=== PATIENT | male | born 1945 | race Caucasian/White ===

== ENCOUNTER 2019-11-03 04:53 | Inpatient (IN) | payer MEDICARE, BC ==
[~2019-11-03] VITALS: Ht 177.8 cm; Wt 141.0 kg
[2019-11-03] MEDS ORDERED: SODIUM CHLORIDE FLUSH 10ML SYR IVF ONE (05:00)
--- NOTE | 2019-11-03 05:15 | NUR ---
BIB [facility] WITH C/O SOB AND DENIZ CARDIA WAS 30 AT SCENE, 0.5 ATROPINE GIVEN, 15 L NON REBREATHER SPEAKING IN FULL SCENTENCES AT THIS
[2019-11-03] MEDS ORDERED: NOREPINEPHRINE 4 MG in SODIUM CHLORIDE 0.9% 246 ML IV PRN ×2 (05:18→11:47)
[2019-11-03] MEDS ORDERED: GLUCAGON 1 MG ONE (05:25)
[2019-11-03] MEDS ORDERED: ATROPINE SYRINGE 0.1 MG/ML, 10ML ONE (05:25)
[2019-11-03] MEDS ORDERED: ATROPINE SYRINGE 0.1 MG/ML, 10ML IVPush ONE (05:30)
[2019-11-03] MEDS ORDERED: PLEASE ENTER HEIGHT AND WEIGHT MC SCH (05:30)
[2019-11-03] MEDS ORDERED: GLUCAGON 1 MG IVPush ONE (05:30)
[2019-11-03 05:34] LABS: INTERNATIONAL NORMALIZED RATIO 1.06 (0.93-1.1); PROTHROMBIN TIME 11.1 Seconds (9.6-11.5)
[2019-11-03 05:39] LABS: ALBUMIN 3.1 g/dL (3.4-5.0); ANION GAP 10 mmol/L (5-15); CALCIUM 7.6 mg/dL (8.5-10.1); CHLORIDE 95 mmol/L (98-107)
[2019-11-03] MEDS ORDERED: ONDANSETRON 2MG/ML, 2ML ONE (05:42)
[2019-11-03 05:43] LABS: ALANINE AMINOTRANSFERASE 49 U/L (12-78); ALKALINE PHOSPHATASE 80 U/L (45-117); BILIRUBIN,TOTAL 0.6 mg/dL (0.2-1.0); CREATININE 6.45 mg/dL (0.7-1.3); TOTAL PROTEIN 6.3 g/dL (6.4-8.2); TROPONIN I < 0.015 ng/mL (0.000-0.045)
[2019-11-03] MEDS: DOPAMINE/D5W PMX 250 ML IV PRN ×11 (05:47→13:02)
[2019-11-03 05:48] LABS: FREE T4 (FREE THYROXINE) 0.37 ng/dL (0.76-1.46); MEAN CORPUSCULAR HEMOGLOBIN 27.7 pg (27.5-34.5); MEAN CORPUSCULAR HGB CONC 30.9 g/dL (33.2-36.2); MEAN CORPUSCULAR VOLUME 89.6 fL (81-97); RED BLOOD COUNT 4.03 x10^6/uL (4.38-5.82); RED CELL DISTRIBUTION WIDTH 20.6 % (9.4-14.8)
[2019-11-03 05:59] LABS: MD YES
[2019-11-03 06:00] LABS: LYMPHS% (MANUAL) 11 % (22-44); MONOS#(MANUAL) 0.87 x10^3/uL (0.3-2.7); MONOS% (MANUAL) 8 % (2-9); SEG#(MANUAL) 8.83 x10^3/uL (1.8-6.8); SEGS% (MANUAL) 81 % (42-75)
[2019-11-03] MEDS ORDERED: SODIUM BICARB 8.4%, 50ML SYRINGE IVPush ONE (06:00)
[2019-11-03] MEDS ORDERED: INSULIN REGULAR 100 UNITS/ML, 3ML VIAL IVPush ONE (06:00)
[2019-11-03] MEDS ORDERED: CALCIUM GLUCONATE 9.2 MEQ in SODIUM CHLORIDE 0.9% 100 ML IV ONE (06:00)
[2019-11-03] MEDS ORDERED: ONDANSETRON 2MG/ML, 2ML IVPush ONE (06:00)
[2019-11-03] MEDS ORDERED: ALBUTEROL 0.5%, 20ML NPPB ONE (06:00)
[2019-11-03] MEDS ORDERED: DEXTROSE 50%, 50ML SYRINGE IVPush ONE (06:00)
[2019-11-03 06:01] LABS: ANISOCYTOSIS 1+; MEAN PLATELET VOLUME 10.8 fL (7.4-10.4); PLATELET COUNT 172 x10^3/uL (130-400)
[2019-11-03 06:02] LABS: <PLATELET ESTIMATE> ADEQUATE; POLYCHROMASIA 1+
[2019-11-03 06:03] LABS: LARGE PLATELETS 1+
[2019-11-03] MEDS ORDERED: INSULIN SINGLE DOSE, ER ONE (06:09)
[2019-11-03] MEDS ORDERED: SODIUM BICARBONATE 1 MEQ/ML, 50ML VIAL ONE (06:10)
[2019-11-03] MEDS ORDERED: PROMETHAZINE 25 MG/ML, 1ML ONE (06:29)
[2019-11-03] MEDS ORDERED: PROMETHAZINE 25 MG/ML, 1ML IM ONE (06:30)
--- NOTE | 2019-11-03 06:34 | NUR ---
MEDICATED PER MAR PT RESPONDING WELL TO MEDICATIONS
[2019-11-03] MEDS ORDERED: ETOMIDATE 20 MG/10 ML IV ONE (07:00)
[2019-11-03] MEDS ORDERED: ROCURONIUM 10 MG/ML,10ML IVPush ONE (07:00)
--- NOTE | 2019-11-03 07:00 | NUR ---
REPORT WAS RECEIVED AND CARE WAS ASSUMED. PT. IS A & O X 2, GCS IS 13. PT. IS RETRACTING. DISCUSSED WITH DR. STEPHEN AND LABS REVIEWED. PT. AND WERE UPDATED ON THE PLAN OF CARE. ED STAFF IS SETTING UP TO INTUBATE THE PT.
--- NOTE | 2019-11-03 07:05 | NUR ---
PT. HAS HOB IS RAISED. PT. WAS PLACED ON 15 LITERS O2 PER NASAL CANNULA AND THE RT IS BAGGING THE PT. DR. STEPHEN INTUBATED THE PT. WITH AN 8.0 ET TUBE THAT IS 26CM AT THE LIP. PT. HAS GOOD BILAT BREATH SOUNDS. ETCO2 IS CURRENTLY 50. PT. REMAINS ON THE CARDIOPULMONARY MONITOR, MEDICATIONS INFUSING ORDERED. SOFT RESTRAINTS WERE PLACED TO PROTECT MEDICAL EQUIPTMENT AND PT.'S KWONG CATH IS DRAINING CLEAN YELLOW URINE. PT. HAS A #[address] TO HIS RIGHT NARE AND IT IS DRAINING GASTRIC CONTENTS. SUCTION IS LOW AND CONTINUOUS. RN REMAINS AT THE BEDSIDE. HOB IS ELEVATED GREATER THAN 30 DEGREES. WARMING MEASURES ARE IN PLACE AND THE SIDERAILS REMAIN UP X 2. PT.'S IS GIVEN FREQUENT EXPLANATIONS ON THE PLAN OF CARE AND PROCEDURES TO THE PT.
--- NOTE | 2019-11-03 07:10 | NUR ---
PT.'S VENT SETTINGS ARE FOLLOWS: PRVC, RR=18, GW=401, PEEP=5, CIT8=263%. ET TUBE CUFF PRESSURE IS 26CM PER THE RT.
[2019-11-03] MEDS: PROPOFOL 100 ML IV PRN ×5 (07:20→21:18)
[2019-11-03] MEDS ORDERED: ALBUTEROL 0.5%, 20ML ONE (07:25)
--- NOTE | 2019-11-03 07:33 | NUR ---
PT.'S DOMAPINE TITRATED DOWN TO 8MCG/KG/MIN
--- NOTE | 2019-11-03 07:43 | NUR ---
PT.'S DOPAMINE WAS TITRATED DOWN TO 5 MCG/KG/MIN.
--- NOTE | 2019-11-03 07:53 | NUR ---
PT. IS HYPERTENSIVE. DOPAMINE STOPPED. DR. STEPHEN IS AWARE.
[2019-11-03] MEDS ORDERED: ENALAPRILAT 1.25 MG/ML, 2ML IVPush PRN (08:00)
[2019-11-03] MEDS ORDERED: POLYETHYLENE GLYCOL 17 GM PACKET PO PRN (08:00)
[2019-11-03] MEDS ORDERED: BISACODYL 10 MG SUPP PR PRN (08:00)
[2019-11-03] MEDS ORDERED: ACETAMINOPHEN 325 MG TABLET PO PRN (08:00)
[2019-11-03] MEDS ORDERED: LABETALOL 5MG/ML, 20ML IVPush PRN (08:00)
--- NOTE | 2019-11-03 08:04 | NUR ---
DR. CAMARA IS AT THE BEDSIDE. WAS GIVEN REPORT AND THE PT.'S CARE AND TREATMENTS. MD IS AWARE OF THE PT.'S LABS. THE MD IS SPEAKING WITH THE PT.'S AND DISCUSSING THE TREATMENTS WELL THE PLAN OF CARE. KOBI AGUILAR CONTINUES TO TITRATE THE PT.'S DOPAMINE.
--- NOTE | 2019-11-03 08:05 | NUR ---
PT.'S HEART RATE AND BLOOD PRESSURE ARE DROPPING. DOPAMINE WAS RESTARTED AT 5MCG/KG/MIN.
--- NOTE | 2019-11-03 08:15 | NUR ---
PT.'S DOPAMINE WAS DECREASED TO 3MCG/KG/MIN.
--- NOTE | 2019-11-03 08:25 | NUR ---
PT. HAS THE KIARA HUGGER IN PLACE. HOB REMAINS ELEVATED GREATER THAN 30 DEGREES. PT. IS RESTING WITHOUT S/S DISCOMFORT. SIDERAILS REMAIN UP X 2. AT THE BEDSIDE.
--- NOTE | 2019-11-03 08:27 | NUR ---
RT AT THE BEDSIDE. RT IS DECREASING THE PT.'S 02 TO 80%.
[2019-11-03] MEDS ORDERED: FUROSEMIDE 100 MG/10 ML IV ONE (08:30)
[2019-11-03] MEDS ORDERED: FUROSEMIDE 40 MG/4 ML ONE (08:55)
--- NOTE | 2019-11-03 08:58 | NUR ---
PT.'S ETCO2 REMAINS AT 40. PT. HAS THE CP MONITOR IN PLACE. VENT SETTINGS REMAIN UNCHANGED. PT. IS RESTING WITH THE HOB ELEVATED. RN REMAINS AT THE BEDSIDE AND IS TITRATING DOPAMINE PRN TO MAITAIN VITALS WITHIN PARAMETERS. LASIX GIVEN ORDERED.
[2019-11-03] MEDS: SENNA/DOCUSATE TABLET PO SCH (09:00)
--- NOTE | 2019-11-03 09:00 | NUR ---
DOPAMINE INCREASED TO 4 MCG/KG/MIN
--- NOTE | 2019-11-03 09:17 | NUR ---
PT. IS MOVING AND TWITCHING. WITHDRAWS TO PAIN. PROPOFOL INCREASED AT THIS TIME. SEE MAR.
--- NOTE | 2019-11-03 09:39 | NUR ---
PT.'S BGL ZPPIFRH=[id number]. PT. WAS REPOSITIONED FOR COMFORT. HOB REMAINS ELEVATED GREATER THAN 3O DEGREES. PT. HAS THE CP MONITOR IN PLACE. PT.'S URINE OUTPUT IS 1,100CC AFTER THE LASIX WAS GIVEN. AN ADDITION IV WAS ESTABLISHED IN THE PT.'S LEFT WRIS #20G. WARMING MEASURES ARE WORKING. PT.'S BODY TEMPERATURE IS INCREASING. VITALS ARE STABLE AT THIS TIME.
--- NOTE | 2019-11-03 09:51 | NUR ---
PT. IS STARTING TO MOVE FREQUENTLY. PROPOFOL INCREASED TO KEEP THE PT. COMFORTABLE.
[2019-11-03] MEDS ORDERED: PROPOFOL 100 ML IV ONE ×2 (09:56→12:43)
[2019-11-03] MEDS ORDERED: AZIT500T10 PO (10:14)
[2019-11-03] MEDS ORDERED: ATOR-2 PO (10:14)
[2019-11-03] MEDS ORDERED: ASCO1500 PO (10:14)
[2019-11-03] MEDS ORDERED: CHOL100015 PO (10:14)
[2019-11-03] MEDS ORDERED: PRED10TA PO (10:14)
[2019-11-03] MEDS ORDERED: OMEP-110 PO (10:14)
[2019-11-03] MEDS ORDERED: PREG300C PO (10:14)
[2019-11-03] MEDS ORDERED: SPIR25TA5 PO (10:14)
[2019-11-03] MEDS ORDERED: LISI-167 PO (10:14)
[2019-11-03] MEDS ORDERED: BUME2TAB3 PO (10:14)
[2019-11-03] MEDS ORDERED: BUDE10.2 INH (10:14)
[2019-11-03] MEDS ORDERED: CLOP75TA52 PO (10:14)
[2019-11-03] MEDS ORDERED: ARMO250T2 PO (10:14)
[2019-11-03] MEDS ORDERED: MONT10TA9 PO (10:14)
[2019-11-03] MEDS ORDERED: AMIO400T5 PO (10:14)
[2019-11-03] MEDS ORDERED: ALBU0.63 NEB (10:14)
[2019-11-03] MEDS ORDERED: DOCU-131 PO (10:14)
[2019-11-03] MEDS ORDERED: NITR0.6T4 SL (10:14)
[2019-11-03] MEDS ORDERED: METO-93 PO (10:14)
[2019-11-03] MEDS ORDERED: RIVA15TA PO (10:14)
[2019-11-03] MEDS ORDERED: [UNRECOGNIZED DRUG - CODE] PO (10:14)
[2019-11-03] MEDS ORDERED: TAMS-11 PO (10:14)
[2019-11-03] MEDS: LEVOTHYROXINE 100 MCG INJ IVPush SCH (10:19)
[2019-11-03] MEDS ORDERED: FENTANYL PF 100 MCG/2ML IVPush ONE (10:30)
[2019-11-03] MEDS ORDERED: HYDROCORTISONE 100 MG INJ. ONE (10:30)
[2019-11-03] MEDS ORDERED: FENTANYL PF 100 MCG/2ML ONE (10:31)
--- NOTE | 2019-11-03 10:33 | NUR ---
DR. QUINONES IS AT THE BEDSIDE. ORDERS RECEIVED AND CARRIED OUT.
--- NOTE | 2019-11-03 10:37 | NUR ---
PT. IS RESTLESS. PT. WAS MEDICATED FOR PAIN ORDRED.
--- NOTE | 2019-11-03 10:47 | NUR ---
PT. WAS MEDICATED FOR PAIN ORDERED. PT. REMAINS MONITORED AND IS RESTING WITHOUT S/S DISCOMFORT. VSS. PT.'S MOUTH WAS SUCTIONS. BROWN GASTRIC CONTENTS REMOVED FROM THE PT.'S NG TUBE. PT. REMAINS ON THE VENTILATOR, HOB IS ELEVATED GREATER THAN 30 DEGREES. PT.'S KWONG CATH CONTINUES TO PUT OUT CLEAR YELLOW URINE. WARMING MEASURES REMAIN IN PLACE. PT. HAS THE KIARA BLANKET ON. SIDERAILS ARE UP X 2 WITH THE RN AT THE BEDSIDE. PT.'S DRIPS ARE INFUSING ON THE PUMP AT THIS TIME.
[2019-11-03] MEDS: HYDROCORTISONE 100 MG INJ. IVPush SCH ×3 (10:49→18:13)
--- NOTE | 2019-11-03 10:52 | NUR ---
PO STOOL SOFTENER NOT GIVEN SECONDARY TO THE PT. BEING INTUBATED.
[2019-11-03] MEDS ORDERED: HYDROCORTISONE 100 MG INJ. IVPush ONE (11:00)
--- NOTE | 2019-11-03 11:14 | NUR ---
FAMILY IS AT THE BEDSIDE. PT. IS RESTING WITHOUT S/S DISCOMFORT. CP MONITOR REMAINS IN PLACE. PT. REMAINS ON THE VENTILATOR. IV DRIPS ARE INFUSING ON THE PUMP. VSS. SIDERAILS REMAIN UP X 2 WITH THE RN AT THE PT.'S BEDSIDE.
--- NOTE | 2019-11-03 11:31 | NUR ---
DR. POMPA AND ARE AT THE BEDSIDE WITH THE PT. PT.'S BLOOD PRESSURE DECREASED. PT.'S DOPAMINE DRIP WAS TITRATED TO SUPPORT THE PT.'S BLOOD PRESSURE. SEE MAR.
--- NOTE | 2019-11-03 11:52 | NUR ---
PT.'S BLOOD PRESSURE IMPROVED. DR. POMPA WAS UPDATED. RN REMAINS AT THE BEDSIDE.
[2019-11-03] MEDS ORDERED: DEXTROSE 4 GM TAB.CHEW PO PRN (12:00)
[2019-11-03] MEDS: ALBUTEROL/IPRATROPIUM 2.5MG/0.5MG, 3 ML INLINE SCH ×4 (12:00→23:00)
[2019-11-03] MEDS ORDERED: GLUCAGON 1 MG IM PRN (12:00)
[2019-11-03] MEDS ORDERED: DEXTROSE 50%, 50ML SYRINGE IVPush PRN (12:00)
[2019-11-03] MEDS ORDERED: PHARMACY MAY ADJ FOR RENAL FX MC SCH (12:00)
[2019-11-03] MEDS ORDERED: LIDOCAINE-MPF 1%, 2ML ENDO PRN (12:00)
--- NOTE | 2019-11-03 12:17 | NUR ---
LAB IS AT THE BEDSIDE DRAWING THE PT.'S BLOOD.
--- NOTE | 2019-11-03 12:29 | NUR ---
DR. POMPA AT THE BEDSIDE EXPLAINING THE DIALYSIS CATH PLACEMENT TO THE PT.'S FAMILY WITH CONSENT OBTAINED. INSTRUCTED RN LAUREN TO LEAVE THE PT.'S BP ON THE HIGHER SIDE WITH HIS DOPAMINE GTT INFUSING AT 5MCG/KG/MIN.
[2019-11-03] MEDS ORDERED: METRONIDAZOLE PMX 500MG/100ML 100 ML ONE (12:36)
[2019-11-03] MEDS ORDERED: CEFTRIAXONE PMX 1GM/50ML 50 ML ONE (12:36)
[2019-11-03] MEDS: CEFTRIAXONE PMX 1GM/50ML 50 ML IV SCH (12:38)
[2019-11-03 12:48] LABS: CALCIUM 8.9 mg/dL (8.5-10.1)
[2019-11-03 12:49] LABS: INTERNATIONAL NORMALIZED RATIO 0.99 (0.93-1.1); PROTHROMBIN TIME 10.4 Seconds (9.6-11.5)
[2019-11-03 12:51] LABS: ABSOLUTE RETICS # 0.114 x10^6/uL (0.5-1.5); RETICULOCYTE COUNT % 2.38 % (0.5-1.5)
[2019-11-03 12:52] LABS: % IRON SATURATION 16 % (20-55); IRON LEVEL 58 mcg/dL (65-175); RED BLOOD COUNT 4.77 x10^6/uL (4.38-5.82); TOTAL IRON BINDING CAPACITY 355 mcg/dL (250-450)
--- NOTE | 2019-11-03 12:53 | NUR ---
DR. JOHNSON IS AT THE BEDSIDE WITH THE PT. LYING FLAT, PLACING A DIALYSIS CATH. PT. REMAINS MONITORED.
[2019-11-03 12:55] LABS: TROPONIN I 0.047 ng/mL (0.000-0.045)
--- NOTE | 2019-11-03 12:57 | NUR ---
PT. REMAIN ON THE CP MONITOR AND VENTILATOR. ALL MEDICATIONS ARE INFUSING ON THE PUMP. LABS WERE DRAWN. DR. MORENO IS AT THE BEDSIDE COMPLETING THE TEMPORARY DIALYSIS CATH PLACEMENT. RN REMAINS AT THE PT.'S BEDSIDE.
--- NOTE | 2019-11-03 13:02 | NUR ---
PT. WAS TAKEN OFF OF THE KIARA BLANKET. FAMILY REMAINS AT THE BEDSIDE.
--- NOTE | 2019-11-03 13:27 | NUR ---
REPORT WAS GIVEN TO ZAHRAA PEACE. RN IS PREPARING THE PT. FOR TRANSPORT TO CCU.
--- NOTE | 2019-11-03 13:30 | NUR ---
URINE OUTPUT IS 2,000CC.
--- NOTE | 2019-11-03 13:35 | NUR ---
PT. WAS TRANSPORTED TO CCU ROOM 559. RN AND RT TRANSPORTED THE PT. WITH CP MONITOR AND PORTABLE VENT IN PLACE.
[2019-11-03] MEDS: LIOTHYRONINE 5 MCG TABLET PO SCH ×2 (14:41→22:35)
[2019-11-03] MEDS: METRONIDAZOLE PMX 500MG/100ML 100 ML IV SCH ×2 (14:42→23:54)
[2019-11-03] MEDS: INSULIN LISPRO 100 UNITS/ML, PEN SQ-INSULIN SCH ×2 (16:40→21:00)
[2019-11-03] MEDS ORDERED: PROPOFOL 10 MG/ML, 100ML IV ONE (16:53)
[2019-11-03] MEDS ORDERED: ROCURONIUM 10MG/ML,5ML ONE (16:53)
[2019-11-03] MEDS ORDERED: ETOMIDATE 40 MG/20 ML ONE (16:53)
[2019-11-03 19:03] LABS: MICROSCOPIC AUTO
[2019-11-03] MEDS: BUDESONIDE 0.5 MG/2 ML INHA INH SCH (19:10)
[2019-11-03 19:16] LABS: CULTURE INDICATED? NO
[2019-11-03 19:32] LABS: CREATININE,URINE RANDOM 97.3 mg/dL
[2019-11-03 20:01] LABS: TROPONIN I 0.043 ng/mL (0.000-0.045)
[2019-11-03] MEDS: SODIUM CHLORIDE FLUSH 10ML SYR IVF SCH (21:18)
[2019-11-04] MEDS: PROPOFOL 100 ML IV PRN ×5 (01:08→21:14)
[2019-11-04] MEDS: HYDROCORTISONE 100 MG INJ. IVPush SCH ×3 (02:49→18:57)
[2019-11-04] MEDS: ALBUTEROL/IPRATROPIUM 2.5MG/0.5MG, 3 ML INLINE SCH ×6 (02:55→22:38)
[2019-11-04 04:00] VITALS: BP 119/59
[2019-11-04] MEDS: DOPAMINE/D5W PMX 250 ML IV PRN ×2 (04:45→17:23)
[2019-11-04 05:58] LABS: ALBUMIN 2.6 g/dL (3.4-5.0); ANION GAP 8 mmol/L (5-15); CALCIUM 7.5 mg/dL (8.5-10.1); CHLORIDE 97 mmol/L (98-107); MEAN CORPUSCULAR HEMOGLOBIN 27.3 pg (27.5-34.5); MEAN CORPUSCULAR HGB CONC 31.3 g/dL (33.2-36.2); MEAN CORPUSCULAR VOLUME 87.3 fL (81-97); PLATELET COUNT 171 x10^3/uL (130-400); RED BLOOD COUNT 4.06 x10^6/uL (4.38-5.82); RED CELL DISTRIBUTION WIDTH 20.7 % (9.4-14.8)
[2019-11-04 06:03] LABS: ALANINE AMINOTRANSFERASE 40 U/L (12-78); ALKALINE PHOSPHATASE 53 U/L (45-117); BILIRUBIN,TOTAL 0.4 mg/dL (0.2-1.0); CREATININE 3.27 mg/dL (0.7-1.3); TOTAL PROTEIN 5.5 g/dL (6.4-8.2)
[2019-11-04] MEDS: LIOTHYRONINE 5 MCG TABLET PO SCH ×2 (06:28→16:03)
[2019-11-04 06:33] LABS: BASOPHILS % (AUTO) 0 % (0-1); EOSINOPHILS % (AUTO) 0 % (1-7); LYMPHOCYTES # (AUTO) 0.39 x10^3/uL (1-3.4); LYMPHOCYTES % (AUTO) 4 % (22-44); MD SCAN; MONOCYTES # (AUTO) 0.82 x10^3/uL (0.2-0.8); MONOCYTES % (AUTO) 8 % (2-9); NEUTROPHILS # (AUTO) 9.69 x10^3/uL (1.8-6.8); NEUTROPHILS % (AUTO) 89 % (42-75)
[2019-11-04] MEDS: INSULIN LISPRO 100 UNITS/ML, PEN SQ-INSULIN SCH ×4 (07:00→21:15)
[2019-11-04] MEDS: BUDESONIDE 0.5 MG/2 ML INHA INH SCH ×2 (07:04→18:33)
[2019-11-04] MEDS: PANTOPRAZOLE 40 MG IV IV SCH (07:49)
[2019-11-04] MEDS: SODIUM CHLORIDE FLUSH 10ML SYR IVF SCH ×2 (07:49→21:15)
[2019-11-04] MEDS: LEVOTHYROXINE 100 MCG INJ IVPush SCH (07:49)
[2019-11-04] MEDS: METRONIDAZOLE PMX 500MG/100ML 100 ML IV SCH ×2 (07:49→18:09)
[2019-11-04] MEDS: SENNA/DOCUSATE TABLET PO SCH (07:50)
[2019-11-04] MEDS ORDERED: MICROFIBRILLAR COLLAGEN 0.5GM/PACK TP ONE (11:00)
[2019-11-04] MEDS: CEFTRIAXONE PMX 1GM/50ML 50 ML IV SCH (12:47)
[2019-11-05] MEDS: PROPOFOL 100 ML IV PRN ×4 (00:03→08:23)
[2019-11-05] MEDS: LIOTHYRONINE 5 MCG TABLET PO SCH ×3 (00:04→16:28)
[2019-11-05] MEDS: FENTANYL PF 100 MCG/2ML IVPush PRN ×3 (00:39→16:28)
[2019-11-05] MEDS: METRONIDAZOLE PMX 500MG/100ML 100 ML IV SCH ×3 (02:08→18:12)
[2019-11-05] MEDS: HYDROCORTISONE 100 MG INJ. IVPush SCH ×3 (02:58→20:43)
[2019-11-05 04:58] LABS: EOSINOPHILS % (AUTO) 0 % (1-7); MD NO; PLATELET COUNT 158 x10^3/uL (130-400)
[2019-11-05 05:03] LABS: ALANINE AMINOTRANSFERASE 38 U/L (12-78); ALBUMIN 2.5 g/dL (3.4-5.0); ANION GAP 8 mmol/L (5-15); CALCIUM 7.9 mg/dL (8.5-10.1); CHLORIDE 103 mmol/L (98-107); CREATININE 1.59 mg/dL (0.7-1.3)
[2019-11-05 05:05] LABS: ALKALINE PHOSPHATASE 45 U/L (45-117); BILIRUBIN,TOTAL 0.5 mg/dL (0.2-1.0); TOTAL PROTEIN 5.5 g/dL (6.4-8.2)
[2019-11-05 05:13] LABS: BASOPHILS % (AUTO) 0 % (0-1); LYMPHOCYTES # (AUTO) 0.42 x10^3/uL (1-3.4); LYMPHOCYTES % (AUTO) 5 % (22-44); MEAN CORPUSCULAR HEMOGLOBIN 27.7 pg (27.5-34.5); MEAN CORPUSCULAR HGB CONC 31.6 g/dL (33.2-36.2); MEAN CORPUSCULAR VOLUME 87.7 fL (81-97); MONOCYTES # (AUTO) 0.77 x10^3/uL (0.2-0.8); MONOCYTES % (AUTO) 8 % (2-9); NEUTROPHILS # (AUTO) 8.18 x10^3/uL (1.8-6.8); NEUTROPHILS % (AUTO) 87 % (42-75); RED BLOOD COUNT 3.92 x10^6/uL (4.38-5.82); RED CELL DISTRIBUTION WIDTH 20.6 % (9.4-14.8)
[2019-11-05] MEDS: ALBUTEROL/IPRATROPIUM 2.5MG/0.5MG, 3 ML INLINE SCH (06:37)
[2019-11-05] MEDS: BUDESONIDE 0.5 MG/2 ML INHA INH SCH ×2 (06:37→21:00)
[2019-11-05] MEDS: INSULIN LISPRO 100 UNITS/ML, PEN SQ-INSULIN SCH ×4 (07:00→20:44)
[2019-11-05] MEDS: PANTOPRAZOLE 40 MG IV IV SCH (08:08)
[2019-11-05] MEDS: LEVOTHYROXINE 100 MCG INJ IVPush SCH (08:08)
[2019-11-05] MEDS: SENNA/DOCUSATE TABLET PO SCH (08:08)
[2019-11-05] MEDS: SODIUM CHLORIDE FLUSH 10ML SYR IVF SCH ×2 (08:23→20:43)
[2019-11-05] MEDS ORDERED: NOREPINEPHRINE 4 MG in SODIUM CHLORIDE 0.9% 246 ML IV PRN (09:30)
[2019-11-05] MEDS ORDERED: ALBUTEROL SULFATE 2.5 MG/3 ML NPPB PRN (12:00)
[2019-11-05] MEDS: CEFTRIAXONE PMX 1GM/50ML 50 ML IV SCH (12:16)
[2019-11-05] MEDS ORDERED: MICROFIBRILLAR COLLAGEN 1 GM TP ONE (16:30)
[2019-11-05] MEDS: AMIODARONE 200 MG TABLET PO SCH (18:12)
[2019-11-06] MEDS: LIOTHYRONINE 5 MCG TABLET PO SCH ×3 (01:24→17:44)
[2019-11-06] MEDS: METRONIDAZOLE PMX 500MG/100ML 100 ML IV SCH ×3 (01:25→18:16)
[2019-11-06] MEDS: MORPHINE SULFATE 4 MG/ML, 1ML IVPush PRN ×2 (02:08→08:26)
[2019-11-06] MEDS: HYDROCORTISONE 100 MG INJ. IVPush SCH ×3 (04:12→21:04)
[2019-11-06 06:32] LABS: BASOPHILS # (AUTO) 0.05 x10^3/uL (0-0.1); BASOPHILS % (AUTO) 1 % (0-1); EOSINOPHILS % (AUTO) 0 % (1-7); LYMPHOCYTES # (AUTO) 0.53 x10^3/uL (1-3.4); LYMPHOCYTES % (AUTO) 5 % (22-44); MD NO; MEAN CORPUSCULAR HGB CONC 31.6 g/dL (33.2-36.2); MEAN CORPUSCULAR VOLUME 88.5 fL (81-97); MEAN PLATELET VOLUME 10.6 fL (7.4-10.4); MONOCYTES # (AUTO) 1.08 x10^3/uL (0.2-0.8); MONOCYTES % (AUTO) 11 % (2-9); NEUTROPHILS # (AUTO) 8.26 x10^3/uL (1.8-6.8); NEUTROPHILS % (AUTO) 83 % (42-75); PLATELET COUNT 145 x10^3/uL (130-400); RED BLOOD COUNT 3.66 x10^6/uL (4.38-5.82); RED CELL DISTRIBUTION WIDTH 20.7 % (9.4-14.8)
[2019-11-06 06:41] LABS: ALBUMIN 2.7 g/dL (3.4-5.0); ANION GAP 5 mmol/L (5-15); CALCIUM 7.9 mg/dL (8.5-10.1); CHLORIDE 107 mmol/L (98-107)
[2019-11-06] MEDS: BUDESONIDE 0.5 MG/2 ML INHA INH SCH ×2 (06:45→19:51)
[2019-11-06 06:46] LABS: ALANINE AMINOTRANSFERASE 35 U/L (12-78); ALKALINE PHOSPHATASE 47 U/L (45-117); BILIRUBIN,TOTAL 0.7 mg/dL (0.2-1.0); CREATININE 1.29 mg/dL (0.7-1.3); TOTAL PROTEIN 5.7 g/dL (6.4-8.2)
[2019-11-06] MEDS: INSULIN LISPRO 100 UNITS/ML, PEN SQ-INSULIN SCH ×4 (07:00→21:00)
[2019-11-06 07:43] LABS: TROPONIN I 0.038 ng/mL (0.000-0.045)
[2019-11-06] MEDS: AMIODARONE 200 MG TABLET PO SCH (08:25)
[2019-11-06] MEDS: PANTOPRAZOLE 40 MG IV IV SCH (08:25)
[2019-11-06] MEDS: SODIUM CHLORIDE FLUSH 10ML SYR IVF SCH ×2 (08:26→21:05)
[2019-11-06] MEDS: LEVOTHYROXINE 100 MCG INJ IVPush SCH (08:26)
[2019-11-06] MEDS: SENNA/DOCUSATE TABLET PO SCH (08:26)
[2019-11-06] MEDS ORDERED: POTASSIUM CHLORIDE 20 MEQ TAB.ER.PRT PO ONE (09:30)
[2019-11-06] MEDS: METOPROLOL TARTRATE 25 MG TABLET PO SCH ×2 (09:50→17:44)
[2019-11-06] MEDS: FUROSEMIDE 20 MG/2 ML IV SCH ×2 (09:50→17:43)
[2019-11-06] MEDS: PREGABALIN 25 MG CAPSULE PO SCH ×3 (09:51→21:11)
[2019-11-06] MEDS: CEFTRIAXONE PMX 1GM/50ML 50 ML IV SCH (12:30)
[2019-11-06] MEDS: HYDROcodone/APAP 10/325 MG TABLET PO PRN ×2 (12:30→18:15)
[2019-11-06] MEDS: IRON SUCROSE COMPLEX 100MG/5ML IV SCH (13:04)
[2019-11-06 14:42] VITALS: BP 128/63
[2019-11-06] MEDS: LIDODERM 5% PATCH TD SCH (15:54)
[2019-11-06 18:27] VITALS: BP 136/71
[2019-11-06 18:52] VITALS: BP 113/75
[2019-11-07] MEDS: HYDROcodone/APAP 10/325 MG TABLET PO PRN ×3 (00:35→23:40)
[2019-11-07 01:40] VITALS: BP 145/76
[2019-11-07] MEDS: METRONIDAZOLE PMX 500MG/100ML 100 ML IV SCH ×3 (01:47→17:56)
[2019-11-07] MEDS: LIOTHYRONINE 5 MCG TABLET PO SCH ×3 (01:47→16:59)
[2019-11-07 05:04] LABS: ALBUMIN 2.8 g/dL (3.4-5.0); CALCIUM 8.3 mg/dL (8.5-10.1); CHLORIDE 105 mmol/L (98-107)
[2019-11-07 05:07] LABS: ANION GAP 6 mmol/L (5-15); CREATININE 1.25 mg/dL (0.7-1.3)
[2019-11-07 05:18] VITALS: BP 149/76
[2019-11-07 05:19] LABS: BASOPHILS # (AUTO) 0.01 x10^3/uL (0-0.1); BASOPHILS % (AUTO) 0 % (0-1); EOSINOPHILS # (AUTO) 0.01 x10^3/uL (0-0.4); EOSINOPHILS % (AUTO) 0 % (1-7); LYMPHOCYTES # (AUTO) 0.85 x10^3/uL (1-3.4); LYMPHOCYTES % (AUTO) 9 % (22-44); MD NO; MEAN CORPUSCULAR HEMOGLOBIN 28.1 pg (27.5-34.5); MEAN CORPUSCULAR HGB CONC 31.2 g/dL (33.2-36.2); MEAN CORPUSCULAR VOLUME 89.9 fL (81-97); MEAN PLATELET VOLUME 11.4 fL (7.4-10.4); MONOCYTES # (AUTO) 0.94 x10^3/uL (0.2-0.8); MONOCYTES % (AUTO) 10 % (2-9); NEUTROPHILS # (AUTO) 7.35 x10^3/uL (1.8-6.8); NEUTROPHILS % (AUTO) 80 % (42-75); PLATELET COUNT 147 x10^3/uL (130-400); RED BLOOD COUNT 3.72 x10^6/uL (4.38-5.82); RED CELL DISTRIBUTION WIDTH 20.5 % (9.4-14.8)
[2019-11-07] MEDS: HYDROCORTISONE 100 MG INJ. IVPush SCH ×3 (05:19→21:47)
[2019-11-07] MEDS: LEVOTHYROXINE 125 MCG TABLET PO SCH (05:20)
[2019-11-07] MEDS: METOPROLOL TARTRATE 25 MG TABLET PO SCH (05:20)
[2019-11-07] MEDS: PANTOPROZOLE 40MG TABLET PO SCH (05:20)
[2019-11-07] MEDS ORDERED: LEVOTHYROXINE 100 MCG INJ IVPush SCH (06:00)
[2019-11-07] MEDS: INSULIN LISPRO 100 UNITS/ML, PEN SQ-INSULIN SCH (07:00)
[2019-11-07 07:55] VITALS: BP 129/72
[2019-11-07] MEDS: PANTOPRAZOLE 40 MG IV IV SCH (08:48)
[2019-11-07] MEDS: PREGABALIN 25 MG CAPSULE PO SCH ×3 (08:48→21:47)
[2019-11-07] MEDS: SODIUM CHLORIDE FLUSH 10ML SYR IVF SCH ×2 (08:48→21:48)
[2019-11-07] MEDS: AMIODARONE 200 MG TABLET PO SCH (08:49)
[2019-11-07] MEDS: SENNA/DOCUSATE TABLET PO SCH (08:49)
[2019-11-07] MEDS: NEUTRA PHOS K 250 MG TABLET PO SCH ×2 (08:49→21:47)
[2019-11-07] MEDS: BUDESONIDE 0.5 MG/2 ML INHA INH SCH ×2 (08:55→20:24)
[2019-11-07] MEDS ORDERED: POTASSIUM CHLORIDE 20 MEQ TAB.ER.PRT PO ONE (10:00)
[2019-11-07] MEDS ORDERED: FUROSEMIDE 20 MG/2 ML IV ONE (10:00)
[2019-11-07] MEDS: ASPIRIN 81 MG TABLET EC PO SCH (10:23)
[2019-11-07 12:49] VITALS: BP 130/82
[2019-11-07] MEDS: IRON SUCROSE COMPLEX 100MG/5ML IV SCH (12:53)
[2019-11-07] MEDS: CEFTRIAXONE PMX 1GM/50ML 50 ML IV SCH (12:53)
[2019-11-07] MEDS ORDERED: ZOLPIDEM 5MG TABLET PO PRN (13:00)
[2019-11-07] MEDS: LIDODERM 5% PATCH TD SCH (14:47)
[2019-11-07] MEDS: CARVEDILOL 6.25 MG TABLET PO SCH (16:59)
[2019-11-07 18:59] VITALS: BP 151/85
[2019-11-07] MEDS: ATORVASTATIN 80 MG TABLET PO SCH (21:48)
[2019-11-08 00:39] VITALS: BP 134/65
[2019-11-08] MEDS: METRONIDAZOLE PMX 500MG/100ML 100 ML IV SCH ×3 (02:04→18:16)
[2019-11-08] MEDS: LIOTHYRONINE 5 MCG TABLET PO SCH ×3 (02:05→16:44)
[2019-11-08] MEDS: LIDODERM REMOVE PATCH NOTE XX SCH (02:06)
[2019-11-08 05:21] VITALS: BP 151/71
[2019-11-08] MEDS: CARVEDILOL 6.25 MG TABLET PO SCH ×2 (05:21→16:44)
[2019-11-08] MEDS: PANTOPROZOLE 40MG TABLET PO SCH (05:21)
[2019-11-08] MEDS: ASPIRIN 81 MG TABLET EC PO SCH (05:21)
[2019-11-08] MEDS: HYDROCORTISONE 100 MG INJ. IVPush SCH ×3 (05:22→21:17)
[2019-11-08] MEDS: LEVOTHYROXINE 125 MCG TABLET PO SCH (05:22)
[2019-11-08 05:25] LABS: ALBUMIN 2.6 g/dL (3.4-5.0); ANION GAP 5 mmol/L (5-15); CALCIUM 7.8 mg/dL (8.5-10.1); CHLORIDE 106 mmol/L (98-107)
[2019-11-08 05:28] LABS: MEAN CORPUSCULAR HEMOGLOBIN 27.5 pg (27.5-34.5); MEAN CORPUSCULAR HGB CONC 30.7 g/dL (33.2-36.2); MEAN CORPUSCULAR VOLUME 89.6 fL (81-97); MEAN PLATELET VOLUME 11.2 fL (7.4-10.4); PLATELET COUNT 136 x10^3/uL (130-400); RED BLOOD COUNT 3.55 x10^6/uL (4.38-5.82); RED CELL DISTRIBUTION WIDTH 20.8 % (9.4-14.8)
[2019-11-08 06:15] LABS: BASOPHILS # (AUTO) 0.02 x10^3/uL (0-0.1); BASOPHILS % (AUTO) 0 % (0-1); EOSINOPHILS % (AUTO) 0 % (1-7); LYMPHOCYTES # (AUTO) 0.83 x10^3/uL (1-3.4); LYMPHOCYTES % (AUTO) 9 % (22-44); MD SCAN; MONOCYTES # (AUTO) 1.19 x10^3/uL (0.2-0.8); MONOCYTES % (AUTO) 13 % (2-9); NEUTROPHILS # (AUTO) 7.04 x10^3/uL (1.8-6.8); NEUTROPHILS % (AUTO) 78 % (42-75)
[2019-11-08 06:59] VITALS: BP 131/77
[2019-11-08] MEDS: BUDESONIDE 0.5 MG/2 ML INHA INH SCH ×2 (08:00→19:33)
[2019-11-08] MEDS: PREGABALIN 25 MG CAPSULE PO SCH ×3 (09:59→21:18)
[2019-11-08] MEDS: PANTOPRAZOLE 40 MG IV IV SCH (09:59)
[2019-11-08] MEDS: NEUTRA PHOS K 250 MG TABLET PO SCH ×2 (09:59→21:18)
[2019-11-08] MEDS: SENNA/DOCUSATE TABLET PO SCH (10:00)
[2019-11-08] MEDS: AMIODARONE 200 MG TABLET PO SCH (10:00)
[2019-11-08] MEDS: SODIUM CHLORIDE FLUSH 10ML SYR IVF SCH ×2 (10:00→21:18)
[2019-11-08] MEDS: LISINOPRIL 10 MG TABLET PO SCH (12:19)
[2019-11-08] MEDS: BUMETANIDE 1 MG TABLET PO SCH ×2 (12:19→21:18)
[2019-11-08] MEDS: IRON SUCROSE COMPLEX 100MG/5ML IV SCH (12:28)
[2019-11-08] MEDS: CEFTRIAXONE PMX 1GM/50ML 50 ML IV SCH (12:44)
[2019-11-08] MEDS: LIDODERM 5% PATCH TD SCH (15:27)
[2019-11-08 15:56] VITALS: BP 141/80
[2019-11-08 18:57] VITALS: BP 122/65
[2019-11-08] MEDS: ATORVASTATIN 80 MG TABLET PO SCH (21:18)
[2019-11-09 00:39] VITALS: BP 154/93
[2019-11-09] MEDS: LIOTHYRONINE 5 MCG TABLET PO SCH ×3 (02:10→17:48)
[2019-11-09] MEDS: METRONIDAZOLE PMX 500MG/100ML 100 ML IV SCH ×3 (02:10→17:48)
[2019-11-09] MEDS: LIDODERM REMOVE PATCH NOTE XX SCH (02:30)
[2019-11-09 05:01] LABS: BASOPHILS # (AUTO) 0.02 x10^3/uL (0-0.1); BASOPHILS % (AUTO) 0 % (0-1); EOSINOPHILS # (AUTO) 0.01 x10^3/uL (0-0.4); EOSINOPHILS % (AUTO) 0 % (1-7); LYMPHOCYTES # (AUTO) 1.03 x10^3/uL (1-3.4); LYMPHOCYTES % (AUTO) 12 % (22-44); MD NO; MEAN CORPUSCULAR HEMOGLOBIN 27.8 pg (27.5-34.5); MEAN CORPUSCULAR HGB CONC 30.8 g/dL (33.2-36.2); MEAN CORPUSCULAR VOLUME 90.4 fL (81-97); MEAN PLATELET VOLUME 11.3 fL (7.4-10.4); MONOCYTES # (AUTO) 1.01 x10^3/uL (0.2-0.8); MONOCYTES % (AUTO) 12 % (2-9); NEUTROPHILS # (AUTO) 6.69 x10^3/uL (1.8-6.8); NEUTROPHILS % (AUTO) 76 % (42-75); PLATELET COUNT 155 x10^3/uL (130-400); RED BLOOD COUNT 3.62 x10^6/uL (4.38-5.82); RED CELL DISTRIBUTION WIDTH 20.9 % (9.4-14.8)
[2019-11-09] MEDS: ASPIRIN 81 MG TABLET EC PO SCH (05:14)
[2019-11-09] MEDS: CARVEDILOL 6.25 MG TABLET PO SCH ×2 (05:14→17:48)
[2019-11-09] MEDS: LEVOTHYROXINE 125 MCG TABLET PO SCH (05:14)
[2019-11-09] MEDS: PANTOPROZOLE 40MG TABLET PO SCH (05:14)
[2019-11-09] MEDS: HYDROCORTISONE 100 MG INJ. IVPush SCH ×2 (05:14→13:29)
[2019-11-09 05:15] LABS: ALBUMIN 2.7 g/dL (3.4-5.0); ANION GAP 6 mmol/L (5-15); CALCIUM 7.8 mg/dL (8.5-10.1); CHLORIDE 106 mmol/L (98-107)
[2019-11-09 05:17] LABS: CREATININE 1.13 mg/dL (0.7-1.3); TRIGLYCERIDES 69 mg/dL (50-200)
[2019-11-09] MEDS: HYDROcodone/APAP 10/325 MG TABLET PO PRN (05:43)
[2019-11-09 07:21] VITALS: BP 139/78
[2019-11-09] MEDS: BUDESONIDE 0.5 MG/2 ML INHA INH SCH (07:50)
[2019-11-09] MEDS: PANTOPRAZOLE 40 MG IV IV SCH (09:54)
[2019-11-09] MEDS: LISINOPRIL 10 MG TABLET PO SCH (09:54)
[2019-11-09] MEDS: BUMETANIDE 1 MG TABLET PO SCH (09:54)
[2019-11-09] MEDS: PREGABALIN 25 MG CAPSULE PO SCH ×2 (09:54→17:47)
[2019-11-09] MEDS: NEUTRA PHOS K 250 MG TABLET PO SCH (09:55)
[2019-11-09] MEDS: AMIODARONE 200 MG TABLET PO SCH (09:55)
[2019-11-09] MEDS: SODIUM CHLORIDE FLUSH 10ML SYR IVF SCH (09:56)
[2019-11-09] MEDS: SENNA/DOCUSATE TABLET PO SCH (09:58)
[2019-11-09] MEDS: IRON SUCROSE COMPLEX 100MG/5ML IV SCH (13:29)
[2019-11-09] MEDS: CEFTRIAXONE PMX 1GM/50ML 50 ML IV SCH (13:29)
[2019-11-09] MEDS: LIDODERM 5% PATCH TD SCH (14:07)
[2019-11-09] MEDS ORDERED: LIDO700A20 TD (14:43)
[2019-11-09] MEDS ORDERED: LIOT5TAB10 PO ×3 (14:43→14:48)
[2019-11-09] MEDS ORDERED: HYDR10TA PO (14:43)
[2019-11-09] MEDS ORDERED: CARV6.2512 PO (14:43)
[2019-11-09] MEDS ORDERED: PREG25CA PO (14:43)
[2019-11-09] MEDS ORDERED: LEVO125T PO (14:43)
[2019-11-09] MEDS ORDERED: AZIT500T10 PO (14:43)
[2019-11-09 14:45] VITALS: BP 147/77
[2019-11-09] MEDS ORDERED: BUME2TAB3 PO (16:08)
[2019-11-09] MEDS ORDERED: HYDROCORTISONE 10 MG TABLET PO SCH (17:00)
[2019-11-09] MEDS ORDERED: RIVAROXABAN 20 MG TABLET PO SCH (17:00)
== END 2019-11-09 20:01 | disposition home or self-care (01) | DRG 208 ==
LOC: ED 06:50 → EDIP 07:59 → CCU 13:50 → 5SO 11-06 16:18
PROVIDERS: ADMIT Internal Medicine; ATTEND Hospitalist
PROC: 02HV33Z Insertion of Infusion Device into Superior Vena Cava, Percutaneous Approach (ICD-10-PCS; principal; 2019-11-03)
PROC: 5A1945Z Respiratory Ventilation, 24-96 Consecutive Hours (ICD-10-PCS; 2019-11-03)
PROC: B548ZZA Ultrasonography of Superior Vena Cava, Guidance (ICD-10-PCS; 2019-11-03)
PROC: 0BH17EZ Insertion of Endotracheal Airway into Trachea, Via Natural or Artificial Opening (ICD-10-PCS; 2019-11-03)
PROC: 5A1D70Z Performance of Urinary Filtration, Intermittent, Less than 6 Hours Per Day (ICD-10-PCS; 2019-11-03)
PROC: 5A1D70Z Performance of Urinary Filtration, Intermittent, Less than 6 Hours Per Day (ICD-10-PCS; 2019-11-04)
DX: J96.01 Acute respiratory failure with hypoxia (principal); E03.5 Myxedema coma; I50.43 Acute on chronic combined systolic (congestive) and diastolic (congestive) heart failure; N17.0 Acute kidney failure with tubular necrosis; J69.0 Pneumonitis due to inhalation of food and vomit; R57.0 Cardiogenic shock; E87.1 Hypo-osmolality and hyponatremia; J98.11 Atelectasis; E87.2 Acidosis; Z99.11 Dependence on respirator [ventilator] status; D68.69 Other thrombophilia; Z68.41 Body mass index [BMI] 40.0-44.9, adult; I13.0 Hypertensive heart and chronic kidney disease with heart failure and stage 1 through stage 4 chronic kidney disease, or unspecified chronic kidney disease; I42.9 Cardiomyopathy, unspecified; E87.5 Hyperkalemia; I48.0 Paroxysmal atrial fibrillation; N20.0 Calculus of kidney; Z88.0 Allergy status to penicillin; D63.8 Anemia in other chronic diseases classified elsewhere; D64.89 Other specified anemias; E66.01 Morbid (severe) obesity due to excess calories; E78.5 Hyperlipidemia, unspecified; E83.52 Hypercalcemia; E86.9 Volume depletion, unspecified; G47.33 Obstructive sleep apnea (adult) (pediatric); I25.10 Atherosclerotic heart disease of native coronary artery without angina pectoris; I25.2 Old myocardial infarction; I35.0 Nonrheumatic aortic (valve) stenosis; J44.9 Chronic obstructive pulmonary disease, unspecified; M19.90 Unspecified osteoarthritis, unspecified site; N18.3 Chronic kidney disease, stage 3 (moderate); N25.0 Renal osteodystrophy; Z51.5 Encounter for palliative care; Z79.01 Long term (current) use of anticoagulants; Z79.02 Long term (current) use of antithrombotics/antiplatelets; Z79.52 Long term (current) use of systemic steroids; Z79.899 Other long term (current) drug therapy; Z82.49 Family history of ischemic heart disease and other diseases of the circulatory system; Z87.891 Personal history of nicotine dependence; Z95.1 Presence of aortocoronary bypass graft; Z95.2 Presence of prosthetic heart valve; Z95.5 Presence of coronary angioplasty implant and graft
CPT/HCPCS: 36415; 36556; 36600; 71045; 76770; 76937; 77001; 80053; 80069; 81001; 82306; 82310; 82436; 82533; 82570; 82728; 82803; 82962; 83540; 83550; 83735; 83880; 83970; 84100; 84133; 84156; 84300; 84439; 84443; 84478; 84481; 84484; 84550; 85025; 85045; 85610; 85730; 86705; 86706; 87040; 87070; 87081; 87205; 87340; 90935; 93005; 93306; 94002; 94003; 94150; 94640; 99291; C1894; G0378; J0461; J0610; J0696; J1265; J1756; J1815; J1940; J2405; J2550; J2704; J3010; J7611; J7620; J7626; C1751; C9113; J1610; J1642; J1720; J2270

== ENCOUNTER 2020-06-14 01:32 | Emergency (ER) | payer MEDICARE, BC ==
[~2020-06-14] VITALS: Ht 170.2 cm; Wt 122.7 kg
[~2020-06-14 01:32] MED LIST: ALBU0.63 NEB; AMIO400T5 PO; ARMO250T2 PO; ASCO1500 PO; ATOR-2 PO; AZIT500T10 PO; BUDE10.2 INH; BUME2TAB3 PO; CARV6.2512 PO; CHOL100015 PO; CLOP75TA52 PO; DOCU-131 PO; HYDR10TA PO; LEVO125T PO; LIDO700A20 TD; LIOT5TAB10 PO; LISI-167 PO; METO-93 PO; MONT10TA11 PO; NITR0.6T4 SL; OMEP-110 PO; PRED10TA PO; PREG25CA PO; PREG300C PO; RIVA15TA PO; SPIR25TA5 PO; TAMS-11 PO; [UNRECOGNIZED DRUG - CODE] PO
[2020-06-14] MEDS ORDERED: ONDANSETRON 2MG/ML, 2ML ONE (02:16)
[2020-06-14] MEDS ORDERED: MORPHINE SULFATE 4 MG/ML, 1ML ONE (02:16)
[2020-06-14] MEDS ORDERED: ONDANSETRON 2MG/ML, 2ML IVPush ONE (02:30)
[2020-06-14] MEDS ORDERED: MORPHINE SULFATE 4 MG/ML, 1ML IVPush ONE (02:30)
--- NOTE | 2020-06-14 02:33 | NUR ---
Patient presents to ER post GLF. Patient states he was sitting in a wheeled chair and fell asleep, causing him to fall out of his chair onto the ground. Patient has a hematoma noted to right forehead. Patient states immediately after the fall, he experienced crushing CP which only lasted for a few minutes. Patient states he is sometimes known to be in a flutter. Patient is in NAD. Respirations even and unlabored.
[2020-06-14 02:40] LABS: MEAN CORPUSCULAR HEMOGLOBIN 27.1 pg (27.5-34.5); MEAN CORPUSCULAR HGB CONC 31.7 g/dL (33.2-36.2); MEAN CORPUSCULAR VOLUME 85.4 fL (81-97); MEAN PLATELET VOLUME 11.9 fL (7.4-10.4); PLATELET COUNT 167 x10^3/uL (130-400); RED BLOOD COUNT 4.73 x10^6/uL (4.38-5.82); RED CELL DISTRIBUTION WIDTH 24.8 % (9.4-14.8)
[2020-06-14 02:48] LABS: ALBUMIN 3.3 g/dL (3.4-5.0); ANION GAP 3 mmol/L (5-15); CALCIUM 8.2 mg/dL (8.5-10.1); CHLORIDE 106 mmol/L (98-107); CREATININE 1.36 mg/dL (0.7-1.3)
[2020-06-14 02:52] LABS: TROPONIN I < 0.015 ng/mL (0.000-0.045)
--- NOTE | 2020-06-14 02:52 | NUR ---
ICE PACK APPLIED TO PT HEAD AND LEG. PT JUST RETURNED BACK FROM CT. PT DENIED ANY NEEDS AT THIS TIME
[2020-06-14 02:59] LABS: BASOPHILS # (AUTO) 0.01 x10^3/uL (0-0.1); BASOPHILS % (AUTO) 0 % (0-1); EOSINOPHILS # (AUTO) 0.02 x10^3/uL (0-0.4); EOSINOPHILS % (AUTO) 0 % (1-7); LYMPHOCYTES # (AUTO) 1.57 x10^3/uL (1-3.4); LYMPHOCYTES % (AUTO) 15 % (22-44); MD SCAN; MONOCYTES # (AUTO) 1.18 x10^3/uL (0.2-0.8); MONOCYTES % (AUTO) 11 % (2-9); NEUTROPHILS # (AUTO) 7.67 x10^3/uL (1.8-6.8); NEUTROPHILS % (AUTO) 74 % (42-75)
[2020-06-14 04:29] VITALS: BP 145/83
[2020-06-14] MEDS ORDERED: NEOSPORIN OINT. PKT 1 PACKET ONE (05:07)
--- NOTE | 2020-06-14 05:25 | NUR ---
Discharge instructions given. All questions and concerns addressed. Patient wheeled out in a wheelchair with his O2 on. Belongings with patient.
== END 2020-06-14 05:27 | disposition home or self-care (01) ==
LOC: ED 02:40
DX: S00.93XA Contusion of unspecified part of head, initial encounter (principal); S09.90XA Unspecified injury of head, initial encounter; M47.812 Spondylosis without myelopathy or radiculopathy, cervical region; R07.89 Other chest pain; M25.562 Pain in left knee; J44.9 Chronic obstructive pulmonary disease, unspecified; E78.5 Hyperlipidemia, unspecified; I10 Essential (primary) hypertension; K21.9 Gastro-esophageal reflux disease without esophagitis; Z95.1 Presence of aortocoronary bypass graft; W18.30XA Fall on same level, unspecified, initial encounter; Y93.89 Activity, other specified; Y92.009 Unspecified place in unspecified non-institutional (private) residence as the place of occurrence of the external cause; Y99.8 Other external cause status
CPT/HCPCS: 36415; 70450; 71046; 72125; 73564; 80048; 82040; 84484; 85025; 93005; 96374; 96375; 99285; J2270; J2405